=== PATIENT | female | born 1945 | race Caucasian/White ===

== ENCOUNTER → 2018-08-19 17:15 | Outpatient (CLI) | payer MEDICARE, OTHER | END | disposition home or self-care (01) | LOC: D.MAMMO 10:30 | PROVIDERS: ATTEND Nurse Practitioner Family | DX: Z85.3 Personal history of malignant neoplasm of breast (principal) ==

== ENCOUNTER → 2018-08-20 07:30 | Outpatient (CLI) | payer MEDICARE, OTHER | END | disposition home or self-care (01) | LOC: D.RAD 07:30 | PROVIDERS: ATTEND Internal Medicine Gastroenterology | DX: R11.10 Vomiting, unspecified (principal); K21.9 Gastro-esophageal reflux disease without esophagitis; Z98.84 Bariatric surgery status ==

== ENCOUNTER → 2018-08-21 08:02 | Outpatient (CLI) | payer MEDICARE, OTHER | END | disposition home or self-care (01) | LOC: D.NM 08:02 | PROVIDERS: ATTEND Internal Medicine Gastroenterology | DX: R11.10 Vomiting, unspecified (principal); K21.9 Gastro-esophageal reflux disease without esophagitis ==

== ENCOUNTER → 2018-11-03 14:30 | Outpatient (CLI) | payer MEDICARE, OTHER | END | disposition home or self-care (01) | LOC: D.LABREF 14:30 | PROVIDERS: ATTEND Orthopaedic Surgery | DX: M17.11 Unilateral primary osteoarthritis, right knee (principal); Z11.8 Encounter for screening for other infectious and parasitic diseases ==

== ENCOUNTER 2018-11-05 16:47 | Inpatient (IN) | payer MEDICARE, OTHER ==
[~2018-11-05] VITALS: Ht 162.6 cm; Wt 114.3 kg
[2018-12-02] MEDS ORDERED: ISOSORBIDE DINI10 MG PO (01:24)
[2018-12-02] MEDS ORDERED: TOPROL XL50 MG PO (01:24)
[2018-12-02] MEDS ORDERED: MECLIZINE HCL25 MG PO (01:24)
[2018-12-02] MEDS ORDERED: FUROSEMIDE40 MG PO (01:25)
[2018-12-02] MEDS ORDERED: LYRICA300 MG PO (01:25)
[2018-12-02] MEDS ORDERED: NEXIUM40 MG PO (01:25)
[2018-12-02] MEDS ORDERED: SINGULAIR10 MG PO (01:25)
[2018-12-02] MEDS ORDERED: NASONEX NASAL S17 GM NS (01:26)
[2018-12-02] MEDS ORDERED: ADVAIR 250/501 DISK INH (01:26)
[2018-12-09] MEDS ORDERED: LIPITOR20 MG PO (15:59)
[2018-12-09] MEDS ORDERED: BAYER CHEWABLE81 MG PO (16:00)
[2018-12-09] MEDS ORDERED: ELAVIL10 MG PO (16:00)
[2018-12-09] MEDS ORDERED: ANASTROZOLE PO (16:01)
[2018-12-10 12:14] LABS: BASOPHILS 0.3 % (0-2); HEMATOCRIT 39.2 % (36.0-48.0); HEMOGLOBIN 13.1 g/dL (12-16); IMMATURE GRANULOCYTES 0.3 % (0-5); LYMPHOCYTES 29.5 % (15-50); MCH 30.3 pg (26.0-34.0); MCHC 33.4 g/dL (31.0-37.0); MCV 90.7 fL (80.0-100.0); MEAN PLATELET VOLUME 9.9 fL (7.4-10.4); NEUTROPHILS 62.9 % (40-80); PLATELET COUNT 257 10x3/uL (130-400); RBC 4.32 10x6/uL (4.00-5.40); RDW 13.1 % (11.5-14.5); WBC 9.7 10x3/uL (4.8-10.8)
[2018-12-10 12:26] LABS: ANION GAP 12.4 mmol/L (8-16); CALCIUM 9.1 mg/dL (8.5-10.1); CARBON DIOXIDE 32.3 mmol/L (21.0-32.0); CREATININE - SERUM 1.1 mg/dL (0.6-1.3); POTASSIUM - SERUM 3.7 mmol/L (3.5-5.1)
[2018-12-10 12:43] LABS: APPEARANCE CLEAR (CLEAR); BACTERIA FEW /hpf (NONE SEEN); BILIRUBIN NEGATIVE (NEGATIVE); COLOR YELLOW (YELLOW); EPITHELIAL CELLS OCC /hpf (0-5); GLUCOSE NEGATIVE (NEGATIVE); INR 0.93 (0.85-1.17); KETONE NEGATIVE (NEGATIVE); NITRITE NEGATIVE (NEGATIVE); PROTEIN NEGATIVE (NEGATIVE); UROBILINOGEN NORMAL (NORMAL); WHITE CELLS - URINE 0-5 /hpf (0-5)
[2018-12-16] VITALS (9 sets, daily range): BP systolic 103–162; BP diastolic 49–75; BMI 43.2; BMI 43.3
--- NOTE | 2018-12-16 10:38 | OP ---
PATIENT NAME: LESVIA REILLY MEDICAL RECORD: [id number] :43 LOCATION:[id number] ADMISSION DATE:12/16/18 SURGEON: KHOI HOLLEY DO DATE OF OPERATION: 12/16/2018 PROCEDURE PERFORMED: Right total knee arthroplasty. PREOPERATIVE DIAGNOSIS: Right knee osteoarthritis. POSTOPERATIVE DIAGNOSIS: Right knee osteoarthritis. INDICATIONS: Ms. Reilly is a 73-year-old female who has had right knee osteoarthritis for quite some time. She has undergone all manner of conservative management including injections, home physical therapy and was started on dealing with the pain as it is affecting her activities of daily living. When she got to the point she said she want a total knee done. I informed her of the risks and benefits including infection, bleeding, damage to nerves and vessels, need for further surgery, blood clots, and even and she was okay with that and signed the consent. SURGEON: Khoi Holley DO CAMPUS SECURITY DIRECTOR: I was assisted by Vasile Moser. DESCRIPTION OF PROCEDURE: The patient received a block by anesthesia and taken to the operative suite, given gentamicin 80 mg and 2 grams Ancef and a gram of TXA prior to starting. The right lower extremity was then prepped and draped. A time-out was performed and everyone was in agreement with correct side, site, patient, and procedure. The incision was then marked out and covered in Ioban. A 10 blade was used to go down to the capsule through the skin and then the capsule was cleaned off. Any bleeding was coagulated with Aquamantys throughout the procedure. Fresh 10 blade was then used to do a medial parapatellar approach to the capsule. The toe was everted and milled down, part of the fat pad was removed. The femur was then exposed and the intramedullary canal was used for the distal femur guide. Distal femur guide was then put in and pinned. Distal femur was cut. Once the distal femur was cut, the tibia was exposed. The tibia was cut. The excess tibia was removed as well as the menisci bringing the knee out into extension. The extension block was put in and fit very well, noted that her tibial bone was somewhat soft. We decided to do a modular tibial stem due to the softness. The femur was then flexed up and sized to be 60. A 4-in-1 cutting block was then used and put in place. Branden wing was used to make sure there was no notching. Then, the femur was cut. The trial was then put into place and the poly was ranged and the rotation was marked for the tibial tray. The lug holes on the femur were then drilled as well as on the patella for the patellar implant. Once that was done, the tibia was exposed and a 67 tibial tray was sized. This was drilled and punched for an 80 mm tibial stem. A cruciate and then cement was mixed and placed on the tibial stem and in the tibia and then impacted in place. Excess cement was removed and the femur was then impacted into place and the poly was put in between. Knee was brought to extension and patella was cemented on as well. Excess cement was removed from the patella. A squeezer was left in place while the cement dried. Once cement was dried, the knee was irrigated while it dried. Any bleeding was coagulated and incised and a 16 poly was seen to be the correct size. E-poly anterior stabilized bearing 16 was put in and the locking mechanism on the tray was put in. The knee was then irrigated one more time. Any bleeding coagulated OPERATIVE REPORT [id number] MELBA,LESVIA and Catalina powder as well as vancomycin, tobramycin powder put in the knee and then the capsule was closed with #2 Ethibond in a bnegkb-mc-fggld fashion. The skin was then closed with 2-0 Vicryl in interrupted fashion and a ZipLine was placed on the knee and a Prevena placed on the knee. Wm wrap, Webril, and 6-inch Wm were then put on the knee and TONIE stocking up to knee. The patient was awakened and taken to recovery in stable condition. Blood loss was approximately 200 mL. COMPLICATIONS: None. TRANSINT:[id number] Voice Confirmation ID: [id number] DOCUMENT ID: [id number] KHOI HOLLEY DO at 1038 CC: RAQUEL MOSCOSO MD [id number] DICTATION DATE: 12/16/18 0857 SALESPERSON [facility] [employer]: 12/16/18 0932 [facility] IN [facility] [address] [place] [address]
[2018-12-16 19:44] LABS: APPEARANCE CLEAR (CLEAR); BILIRUBIN NEGATIVE (NEGATIVE); COLOR YELLOW (YELLOW); GLUCOSE NEGATIVE (NEGATIVE); KETONE NEGATIVE (NEGATIVE); NITRITE NEGATIVE (NEGATIVE); PROTEIN NEGATIVE (NEGATIVE); UROBILINOGEN NORMAL (NORMAL)
[2018-12-17 05:54] VITALS: BP 102/44
[2018-12-17 07:39] LABS: HEMATOCRIT 36.2 % (36.0-48.0); HEMOGLOBIN 11.8 g/dL (12-16); MCH 30.5 pg (26.0-34.0); MCHC 32.6 g/dL (31.0-37.0); MCV 93.5 fL (80.0-100.0); MEAN PLATELET VOLUME 10.7 fL (7.4-10.4); RBC 3.87 10x6/uL (4.00-5.40); RDW 13.8 % (11.5-14.5); WBC 13.1 10x3/uL (4.8-10.8)
[2018-12-17 09:45] VITALS: BP 132/58
[2018-12-17 14:52] VITALS: BMI 43.2
[2018-12-17 17:08] VITALS: BP 107/48
[2018-12-17 22:39] VITALS: BP 110/61
[2018-12-18 05:36] VITALS: BP 140/54
[2018-12-18 08:44] LABS: HEMATOCRIT 40.2 % (36.0-48.0); HEMOGLOBIN 13.3 g/dL (12-16); MCHC 33.1 g/dL (31.0-37.0); MCV 93.7 fL (80.0-100.0); MEAN PLATELET VOLUME 10.6 fL (7.4-10.4); PLATELET COUNT 223 10x3/uL (130-400); RBC 4.29 10x6/uL (4.00-5.40); RDW 13.8 % (11.5-14.5); WBC 26.9 10x3/uL (4.8-10.8)
[2018-12-18 08:45] LABS: ALBUMIN 2.6 g/dL (3.4-5.0); BILIRUBIN - TOTAL 0.88 mg/dL (0.2-1.3); CALCIUM 7.3 mg/dL (8.5-10.1); CARBON DIOXIDE 20.4 mmol/L (21.0-32.0); CREATININE - SERUM 1.2 mg/dL (0.6-1.3); MAGNESIUM - SERUM 1.6 mg/dL (1.8-2.4); POTASSIUM - SERUM 4.4 mmol/L (3.5-5.1); PROTEIN - SERUM 5.9 g/dL (6.4-8.2)
[2018-12-18 09:01] VITALS: BP 119/50
[2018-12-18 09:46] LABS: LYMPHOCYTES 14 % (15-50); MONOCYTES 6 % (2-11); NEUTROPHILS 76 % (40-80); PLATELET ESTIMATE NORMAL
[2018-12-18 12:48] VITALS: BP 103/60
[2018-12-18 15:28] LABS: HEMATOCRIT 26.1 % (36.0-48.0); MCH 30.3 pg (26.0-34.0); MCHC 30.7 g/dL (31.0-37.0); MCV 98.9 fL (80.0-100.0); MEAN PLATELET VOLUME 10.3 fL (7.4-10.4); PLATELET COUNT 149 10x3/uL (130-400); RBC 2.64 10x6/uL (4.00-5.40); WBC 23.9 10x3/uL (4.8-10.8)
[2018-12-18 15:39] LABS: BILIRUBIN - TOTAL 0.61 mg/dL (0.2-1.3); CALCIUM 8.4 mg/dL (8.5-10.1); CARBON DIOXIDE 21.7 mmol/L (21.0-32.0)
[2018-12-18 15:40] LABS: ALBUMIN 1.3 g/dL (3.4-5.0); ANION GAP 28.6 mmol/L (8-16); CREATININE - SERUM 2.7 mg/dL (0.6-1.3); MAGNESIUM - SERUM 2.2 mg/dL (1.8-2.4); PROTEIN - SERUM 3.6 g/dL (6.4-8.2)
[2018-12-18 15:43] LABS: POTASSIUM - SERUM 6.3 mmol/L (3.5-5.1)
[2018-12-18 16:00] LABS: LYMPHOCYTES 60 % (15-50); MONOCYTES 2 % (2-11); NEUTROPHILS 34 % (40-80)
[2018-12-18 16:01] LABS: PLATELET ESTIMATE NORMAL
[2018-12-18 16:43] VITALS: Ht 162.6 cm; Wt 114.3 kg
--- NOTE | 2019-01-10 08:37 | DS ---
PATIENT:LESVIA REILLY :43 MEDICAL RECORD: [id number] DISCHARGE SUMMARY ADMISSION DATE: 12/16/18 DISCHARGE DATE: 12/18/18 DATE OF ADMISSION: 12/16/2018 HOSPITAL COURSE: She had a total knee arthroplasty done. She did well postop and on postop day #2, started to be somewhat confused and was checked on and she was seen to be blue in color. A code was called. This is on postop day #2. She was coded for several minutes, transferred to the ICU and coded a few more times and her patient's family decided to withdraw care. The cause was undetermined. However, she was in cardiac arrest when the monitor was put on. A pulseless electrical activity was what was seen initially. I was not in the code. However, it was ran and I was not there, but she ultimately from cardiorespiratory failure. She was in the ICU at that time. TRANSINT:[id number] Voice Confirmation ID: [id number] DOCUMENT ID: [id number] JOANN HOLLEY DO at 0837 CC: [id number] DICTATION DATE: 01/09/19 1038 TEACHER AIDE CLERICAL: 01/10/19 0120 DIS IN 12/18/18 [facility] [address] [place] [address]
== END 2018-12-18 17:02 | DRG 469 ==
LOC: D.SDCHOLD 12-10 10:00 → D.MS 12-16 05:12 → D.SDCHOLD 12-16 05:12 → D.ICU 12-16 05:12 → D.SDCHOLD 12-16 07:00 → D.MS 12-16 09:27 → D.SDCHOLD 12-16 10:00 → D.ICU 12-18 14:13
PROVIDERS: Family Medicine; ADMIT Orthopaedic Surgery; ATTEND Orthopaedic Surgery
PROC: 0SRC0J9 Replacement of Right Knee Joint with Synthetic Substitute, Cemented, Open Approach (ICD-10-PCS; 2018-12-16)
PROC: 5A1935Z Respiratory Ventilation, Less than 24 Consecutive Hours (ICD-10-PCS; principal; 2018-12-18)
PROC: 0BH17EZ Insertion of Endotracheal Airway into Trachea, Via Natural or Artificial Opening (ICD-10-PCS; 2018-12-18)
PROC: 06HY33Z Insertion of Infusion Device into Lower Vein, Percutaneous Approach (ICD-10-PCS; 2018-12-18)
PROC: 04HY32Z Insertion of Monitoring Device into Lower Artery, Percutaneous Approach (ICD-10-PCS; 2018-12-18)
PROC: 4A133B1 Monitoring of Arterial Pressure, Peripheral, Percutaneous Approach (ICD-10-PCS; 2018-12-18)
PROC: 4A133J1 Monitoring of Arterial Pulse, Peripheral, Percutaneous Approach (ICD-10-PCS; 2018-12-18)
DX: M17.11 Unilateral primary osteoarthritis, right knee (principal); G93.41 Metabolic encephalopathy; N17.9 Acute kidney failure, unspecified; G93.1 Anoxic brain damage, not elsewhere classified; Z68.41 Body mass index [BMI] 40.0-44.9, adult; R57.9 Shock, unspecified; R42 Dizziness and giddiness; G47.00 Insomnia, unspecified; J45.909 Unspecified asthma, uncomplicated; K21.9 Gastro-esophageal reflux disease without esophagitis; I25.10 Atherosclerotic heart disease of native coronary artery without angina pectoris; G47.33 Obstructive sleep apnea (adult) (pediatric); E78.5 Hyperlipidemia, unspecified; I10 Essential (primary) hypertension; E87.5 Hyperkalemia; D64.9 Anemia, unspecified; D72.829 Elevated white blood cell count, unspecified; I46.9 Cardiac arrest, cause unspecified; E66.01 Morbid (severe) obesity due to excess calories; Z85.3 Personal history of malignant neoplasm of breast

== ENCOUNTER 2018-12-02 01:21 | Emergency (ER) | payer MEDICARE, OTHER ==
[~2018-12-02] VITALS: Ht 162.6 cm; Wt 115.5 kg
[2018-12-02 01:23] VITALS: Ht 162.6 cm; Wt 115.5 kg
[2018-12-02] MEDS ORDERED: MECLIZINE HCL25 MG PO (01:24)
[2018-12-02] MEDS ORDERED: TOPROL XL50 MG PO (01:24)
[2018-12-02] MEDS ORDERED: ISOSORBIDE DINI10 MG PO (01:24)
[2018-12-02] MEDS ORDERED: LYRICA300 MG PO (01:25)
[2018-12-02] MEDS ORDERED: FUROSEMIDE40 MG PO (01:25)
[2018-12-02] MEDS ORDERED: SINGULAIR10 MG PO (01:25)
[2018-12-02] MEDS ORDERED: NEXIUM40 MG PO (01:25)
[2018-12-02] MEDS ORDERED: NASONEX NASAL S17 GM NS (01:26)
[2018-12-02] MEDS ORDERED: ADVAIR 250/501 DISK INH (01:26)
[2018-12-02 02:15] LABS: BASOPHILS 0.4 % (0-2); EOSINOPHILS 1.7 % (0-7); HEMATOCRIT 35.7 % (36.0-48.0); IMMATURE GRANULOCYTES 0.4 % (0-5); LYMPHOCYTES 38.9 % (15-50); MCH 30.2 pg (26.0-34.0); MCHC 33.6 g/dL (31.0-37.0); MCV 89.9 fL (80.0-100.0); MONOCYTES 7.9 % (2-11); NEUTROPHILS 50.7 % (40-80); PLATELET COUNT 239 10x3/uL (130-400); RBC 3.97 10x6/uL (4.00-5.40); WBC 7.6 10x3/uL (4.8-10.8)
[2018-12-02 02:20] LABS: APTT 26.1 SECONDS (22.8-39.4); INR 0.89 (0.85-1.17); PROTIME 11.6 SECONDS (11.6-15.0)
[2018-12-02 02:25] LABS: ALBUMIN 2.8 g/dL (3.4-5.0); ALKALINE PHOSPHATASE 119 U/L (46-116); ALT (SGPT) 14 U/L (10-68); BILIRUBIN - TOTAL 0.25 mg/dL (0.2-1.3); CALC OSMOLALITY 270 mosm/kg (275-300); CALCIUM 8.1 mg/dL (8.5-10.1); CARBON DIOXIDE 29.1 mmol/L (21.0-32.0); CHLORIDE - SERUM 101 mmol/L (98-107); GLUCOSE 107 mg/dL (74-106); POTASSIUM - SERUM 3.1 mmol/L (3.5-5.1); PROTEIN - SERUM 6.1 g/dL (6.4-8.2); SODIUM 137 mmol/L (136-145); UREA NITROGEN 5 mg/dL (7-18); eGFR NON AFRICAN AMERICAN 57 mL/min (90-120)
[2018-12-02 02:37] LABS: CKMB 0.4 U/L (0.0-3.6); CREATINE KINASE 62 UL (21-215); MAGNESIUM - SERUM 1.8 mg/dL (1.8-2.4)
[2018-12-02 02:41] LABS: TROPONIN-I < 0.017 ng/mL (0.000-0.060)
[2018-12-02 03:21] VITALS: BP 122/66
[2018-12-18 16:43] VITALS: Ht 162.6 cm; Wt 115.5 kg
== END 2018-12-02 03:21 | disposition home or self-care (01) ==
LOC: D.ER 01:21
PROVIDERS: Family Medicine
DX: R07.89 Other chest pain (principal); F41.9 Anxiety disorder, unspecified; E87.6 Hypokalemia